=== PATIENT | female | born 1990 | race Asian ===

== ENCOUNTER 2017-11-25 20:52 | Emergency (ER) | payer SELFPAY ==
[~2017-11-25] VITALS: Ht 157.5 cm; Wt 71.9 kg
[~2017-11-25 20:52] MED LIST: CYCL10TA35 PO; FERROUS SULF325 M1 OR; MEDROL DOSEPAK4 MG OR
[2017-11-25 21:58] LABS: PLATELET COUNT 250 K/uL (152-353)
[2017-11-25 22:02] LABS: POTASSIUM 3.2 mmol/L (3.6-5.2)
[2017-11-26 00:04] VITALS: BP 142/81; TEMP 98.3
== END 2017-11-26 00:05 | disposition home or self-care (01) ==
LOC: ED 20:52
PROVIDERS: Internal Medicine
DX: E87.6 Hypokalemia (principal); N93.9 Abnormal uterine and vaginal bleeding, unspecified
CPT/HCPCS: 36415; 80053; 81000; 81025; 85027; 99283

== ENCOUNTER 2018-11-03 10:14 | Emergency (ER) | payer OTHER ==
[~2018-11-03] VITALS: Ht 157.5 cm; Wt 64.9 kg
[2018-11-03 10:22] VITALS: TEMP 98.1
[2018-11-03 10:56] LABS: PLATELET COUNT 264 K/uL (152-353)
[2018-11-03 11:25] LABS: POTASSIUM 3.7 mmol/L (3.6-5.2)
[2018-11-03 11:28] LABS: PARTIAL THROMBOPLASTIN TIME 26.2 SECONDS (24.5-33.6)
[2018-11-03 14:06] VITALS: BP 124/76
== END 2018-11-03 14:06 | disposition home or self-care (01) ==
LOC: ED 10:14
PROVIDERS: Hospitalist
DX: R10.31 Right lower quadrant pain (principal); N83.299 Other ovarian cyst, unspecified side
CPT/HCPCS: 36415; 80053; 81000; 81025; 82150; 83690; 85027; 85610; 85730; 96360; 99284; Q9963

== ENCOUNTER 2022-11-06 22:03 | Emergency (ER) | payer OTHER ==
[~2022-11-06] VITALS: Ht 157.5 cm; Wt 81.6 kg
[2022-11-06 23:25] VITALS: BP 150/92; TEMP 98.5
== END 2022-11-07 01:43 | disposition home or self-care (01) ==
LOC: ED 22:03
DX: J30.2 Other seasonal allergic rhinitis (principal); J02.9 Acute pharyngitis, unspecified
CPT/HCPCS: 81002; 81025; 87502; 87635; 87651; 99283; U0003